=== PATIENT | male | born 1960 ===

== ENCOUNTER 2020-08-26 23:00 | Emergency (ER) | payer SELFPAY ==
[2020-08-26 23:38] VITALS: BP 119/75
--- NOTE | 2020-08-27 00:02 | Emergency Department Report ---
ED Male HPI - General Chief complaint: Abdominal Pain Stated complaint: UNABLE TO URINE Time Seen by Provider: 08/26/20 23:45 Source: patient Mode of arrival: Ambulatory Limitations: No Limitations - History of Present Illness Initial comments: Patient is a 60-year-old male that presents emergency room with complaints of inability to urinate. Patient has had urinated since 10 AM this morning. Patient states prior to that he was just urinating a small amount. Patient dates 2 weeks ago he had a urinary tract infection and took antibiotic and com pleted them. Patient states his urinary symptoms are getting better. Patient states he is having lower abdominal pain. Patient states he has a fullness. Patient denies fever and chills. Patient denies diarrhea. Patient denies chest pain and shortness of breath. Patient denies recent travel. Patient denies recent international travel. Patient denies exposure to the novel coronavirus. Patient denies sick contacts. Patient denies fever and chills. Patient denies cough. Patient denies diarrhea. Patient denies coming in contact with anybody with symptoms of the novel coronavirus. MD Complaint: other -: Gradual Severity: moderate Severity scale (0 -10): 4 Quality: aching Consistency: constant Improves with: rest Worsens with: movement urinary retention. denies: discharge, swelling, mass, rash, blood in urine, dysuria, fever, nausea/vomiting, incontinence - Related Data Previous Rx's Medication Instructions Recorded Last Taken Type Sulfamethoxazole/Trimethoprim 1 each PO BID 14 Days #28 tablet 08/27/20 Unknown Rx [Bactrim DS TAB] Tamsulosin [Flomax] 0.4 mg PO QDAY 14 Days #14 cap 08/27/20 Unknown Rx Allergies Allergy/AdvReac Type Severity Reaction Status Date / Time No Known Allergies Allergy Unverified 08/26/20 23:44 ED Review of Systems ROS: Stated complaint: UNABLE TO URINE Other details as noted in HPI Constitutional: denies: chills, fever Eyes: denies: eye pain, eye discharge, vision change ENT: denies: ear pain, throat pain Respiratory: denies: cough, shortness of breath, wheezing Cardiovascular: denies: chest pain, palpitations Endocrine: no symptoms reported Gastrointestinal: abdominal pain. denies: nausea, diarrhea Genitourinary: as per HPI, other. denies: urgency, dysuria Musculoskeletal: denies: back pain, joint swelling, arthralgia Skin: denies: rash, lesions Neurological: denies: headache, weakness, paresthesias Psychiatric: denies: anxiety, depression Hematological/Lymphatic: denies: easy bleeding, easy bruising ED Past Medical Hx - Past Medical History Previous Medical History?: No - Surgical History Past Surgical History?: No - Family History Family history: no significant - Social History Smoking Status: Never Smoker Substance Use Type: None - Medications Home Medications: Home Medications Medication Instructions Recorded Confirmed Last Taken Type Sulfamethoxazole/Trimethoprim 1 each PO BID 14 Days #28 tablet 08/27/20 Unknown Rx [Bactrim DS TAB] Tamsulosin [Flomax] 0.4 mg PO QDAY 14 Days #14 cap 08/27/20 Unknown Rx ED Physical Exam - General Limitations: No Limitations General appearance: alert, in no apparent distress - Head Head exam: Present: atraumatic, normocephalic - Eye Eye exam: Present: normal appearance - ENT ENT exam: Present: mucous membranes moist - Neck Neck exam: Present: normal inspection - Respiratory Respiratory exam: Present: normal lung sounds bilaterally. Absent: respiratory distress - Cardiovascular Cardiovascular Exam: Present: regular rate, normal rhythm. Absent: systolic murmur, diastolic murmur, rubs, gallop - GI/Abdominal GI/Abdominal exam: Present: soft, distended, tenderness, normal bowel sounds - Rectal Rectal exam: Present: deferred - Extremities Exam Extremities exam: Present: normal inspection - Back Exam Back exam: Present: normal inspection - Neurological Exam Neurological exam: Present: alert, oriented X3 - Psychiatric Psychiatric exam: Present: normal affect, normal mood - Skin Skin exam: Present: warm, dry, intact, normal color. Absent: rash ED Course Vital Signs 08/26/20 23:34 Temperature 98.3 F Pulse Rate 90 Respiratory 18 Rate Blood Pressure 119/75 O2 Sat by Pulse 97 Oximetry - Reevaluation(s) Reevaluation #1: Castellano catheter placed. See procedure note. No complications noted. 08/27/20 00:22 Reevaluation #2: Patient states he is feeling much better. Patient denies abdominal pain. Patient has the Castellano catheter and a leg bag has been changed by the nurse. I discussed all results and clinical findings with patient. I discussed plan of care with patient. Patient agrees with plan of care. Patient is stable for discharge. Patient will be discharged home. Patient given discharge ins tructions. Patient voiced understanding of discharge instructions. 08/27/20 01:26 - Catheter Insertion (Urinary) Indications: to alleviate urinary retention Prophylactic Antibiotics Given: No Bladder Scan/US before Catherization: No Preparation: Providone-Iodine Type of Catheter Inserted: Castellano Catheter Balloon Size (mls): 10 Topical Anesthesia Used: No Results: successfully catherized-immediate flow, urine sent for UA/ C&S Patient Tolerated Procedure: well, no complications Complications: none ED Medical Decision Making - Medical Decision Making Patient is a 60-year-old male that presents emergency room with complaints of urinary retention. Patient noted to have palpable bladder on exam. Patient symptoms improved immediately after Castellano catheter placed. I physically placed a Castellano catheter. See procedure note. Patient had a UA done which showed hematuria. Patient clinical findings are consistent with a urinary retention secondary to acute prostatitis. Patient given antibiotic and Flomax. Patient given referral to a urologist. Patient will need to see the urologist for further management of his Castellano and prostatitis. Patient stable for discharge. Patient discharged home. - Differential Diagnosis Urinary retention, UTI, prostatitis, BPH Critical care attestation.: If time is entered above; I have spent that time in minutes in the direct care of this critically ill patient, excluding procedure time. ED Disposition Clinical Impression: Urinary retention, Acute prostatitis Disposition: TO HOME OR SELFCARE Is pt being admited?: No Does the pt Need Aspirin: No Condition: Stable Instructions: Prostatitis (ED), Urinary Retention in Men (ED) Additional Instructions: Patient to follow-up with primary care in 2 to 3 days. Patient to follow-up with urologist in 2 to 3 days. Patient to rest. Patient to increase water. Patient to avoid strenuous exercise or heavy lifting until cleared by neurologist. Patient to take Tylenol or ibuprofen as needed for pain. Patient to take meds as directed. Patient to return to the ER if condition worsens, changes or new symptoms arise. Prescriptions: Sulfamethoxazole/Trimethoprim [Bactrim DS TAB] 1 each PO BID 14 Days #28 tablet Tamsulosin [Flomax] 0.4 mg PO QDAY 14 Days #14 cap Referrals: LARS KWON MD [Primary Care Provider] - 2-3 Days GILES LLANES MD [Staff Physician] - 2-3 Days Time of Disposition: 01:12
[2020-08-27 00:49] LABS: Bacteria,Urine 1+ /HPF (Negative); Bilirubin,Urine NEG (Negative); Blood,Urine SM (Negative); Color,Urine Straw (Yellow); Mucus,Urine FEW /HPF; Protein,Urine <15 mg/dL mg/dL (Negative); Urobilinogen,Urine < 2.0 mg/dL (<2.0); WBC,Urine < 1.0 /HPF (0.0-6.0)
== END 2020-08-27 01:15 | disposition home or self-care (01) ==
LOC: ED 23:00
DX: R33.9 Retention of urine, unspecified (principal); N41.0 Acute prostatitis; Z79.899 Other long term (current) drug therapy
CPT/HCPCS: 51702; 81001; 99283